=== PATIENT | female | born 1950 | race Caucasian/White ===

== ENCOUNTER → 2023-06-12 | Outpatient (CLI) | payer MEDICARE ==
[~2023-06-12] MED LIST: GADOTERATE 0.5 MMOL/ML (CLARISCAN) 20 ML VIAL IV ONE
--- NOTE | 2023-06-12 13:28 | Diagnostic Imaging Report ---
EXAMINATION: MRI of the abdomen with and without contrast. TECHNIQUE: Multiplanar, multisequence MR images of the abdomen were obtained with and without intravenous contrast. HISTORY: Renal lesion evaluation. COMPARISON: None available. FINDINGS: Liver: The visualized liver is normal in signal and smooth in contour. There is no focal hepatic mass. The portal and hepatic veins are patent. Gallbladder and Bile Ducts: There are a few layering stones within the gallbladder. There is no intrahepatic or extrahepatic bile duct dilation. There are no filling defects within the biliary tree. Pancreas: The pancreas is normal in volume, signal intensity and enhancement. There is no dilation of the main pancreatic duct. Spleen: The spleen is normal in size without focal lesion. Adrenal glands: There is a left adrenal nodule measuring 1.9 cm which demonstrates loss of signal on out of phase images compatible with an adenoma. Kidneys: There is a simple nonenhancing right renal cyst which requires no follow-up. There is no suspicious enhancing renal lesion. No hydronephrosis. Lymph Nodes: There is no suspicious lymphadenopathy. Other: There is no ascites. IMPRESSION: 1. No suspicious renal lesion. There is a simple nonenhancing right renal cyst which requires no follow-up. 2. A 1.9 cm left adrenal nodule with imaging characteristics compatible with an adenoma. 3. Cholelithiasis. Dictated by: Dictated on workstation # [id number]
== END ==
LOC: RAD 10:03
PROVIDERS: ATTEND Family Medicine
DX: N28.1 Cyst of kidney, acquired (principal); K80.20 Calculus of gallbladder without cholecystitis without obstruction; E27.9 Disorder of adrenal gland, unspecified
CPT/HCPCS: 74183